=== PATIENT | female | born 1950 | race Caucasian/White ===

== ENCOUNTER 2019-01-14 23:38 | Inpatient (IN) ==
[2019-01-14] MEDS ORDERED: HYDROmorphone HCL 1 MG/ML DISP.SYRIN IV ONE (23:57)
[2019-01-15] MEDS ORDERED: fentaNYL CITRATE/PF 50 MCG/ML AMPUL IV ONE (00:03)
--- NOTE | 2019-01-15 00:18 | ERNOTE ---
Lower Extremity HPI - Narrative Date of Service: 01/15/19 - General Lower Extremities Pain: leg: left - Pain deformity swelling Time Seen by Provider: 01/14/19 23:53 Source: patient - Immun/Allergies/Home Medications Immunizations: IMMUNIZATION HX Immunizations Up to Date No History of Influenza Vaccine No Hx Pneumococcal Vaccination No Allergies/Adverse Reactions: Allergies Allergy/AdvReac Type Severity Reaction Status Date / Time No Known Allergies Allergy Unverified 09/30/15 15:40 Home Medications: HOME MEDICATIONS Duloxetine HCl [Cymbalta] 60 mg PO DAILY 09/30/15 [Last Taken Unknown] LORazepam [Ativan] 1 mg PO QID PRN 09/30/15 [Last Taken Unknown] Levothyroxine Sodium [Tirosint] 75 mcg PO DAILY 09/30/15 [Last Taken Unknown] Lisinopril [Zestril] 20 mg PO DAILY 09/30/15 [Last Taken Unknown] Propranolol HCl [Inderal] 20 mg PO BID 09/30/15 [Last Taken Unknown] Sulfamethoxazole/Trimethoprim [Bactrim Ds] 1 tab PO BID #28 tab 09/30/15 [Last Taken Unknown] metFORMIN HCL [Glucophage] 500 mg PO BIDWM 09/30/15 [Last Taken Unknown] - History of Present Illness Narrative: This is a 68-year-old female comes to the emergency department complaining of left leg pain. Apparently she takes Seroquel to go to sleep at night. She took her medicine this evening but did not go right to bed. She was getting up and trying to go into another room when she fell with the left leg falling underneath her body. She experienced a crack and noticed severe deformity with immediate intense overwhelming pain. EMS was activated and arrived. Obviously significant deformity. Brought to the ER. Given some pain medicine in route with no benefit. Patient says she did not hit her head and did not lose consciousness. She can went down on her bottom with her the leg bent underneath her. No history of hip and leg knee or ankle fractures or injuries in the past. No history of osteoporosis. She is complaining of severe pain. A little bit of tingling but not true numbness. This is all in the left leg from the knee distally. No other complaints. Review of Systems - Review of Systems Constitutional: Present: no symptoms reported EYE: Present: no symptoms reported ENT: Present: no symptoms reported Respiratory: Present: no symptoms reported Cardiology: Present: no symptoms reported Gastrointestinal/Abdominal: Present: no symptoms reported Genitourinary: Present: no symptoms reported Musculoskeletal: Present: See HPI Skin: Present: no symptoms reported Neurological: Present: other - Tingling Endocrine: Present: no symptoms reported Hematologic/Lymphatic: Present: no symptoms reported Psych: Present: no symptoms reported All Other Systems: All systems neg except as marked Medical History (Updated 01/15/19 @ 00:38 by Dimitri Mcpherson MD) Diabetes Hypothyroid Pulmonary hypertension Surgical History: Surgical History (Updated 01/14/19 @ 23:50 by Janice Lara RN) H/O: hysterectomy (Acute) History of appendectomy Social History: (Last Updated 01/14/19 @ 23:46 by Janice Lara, RN) Tobacco: Smoking Status: Never smoker Alcohol: Alcohol type: wine alcohol intake frequency: holiday/special occasion Substance Use: substance use type: does not use Physical Exam - Physical Exam General Appearance: Present: wd/wn, alert, other - Moderate pain distress Head Exam: Present: normal inspection, no evidence of injury Eye Exam: Normal inspection: bilateral, PERRL: bilateral, EOMI: bilateral, Other: bilateral - Minimal nystagmus laterally bilateral Ears, Nose, Throat: Present: normal ENT inspection, normal pharynx Neck: Present: normal inspection, nontender Respiratory: Present: no respiratory distress, normal breath sounds, chest nontender, lungs clear Cardiovascular/Chest: Present: no murmur, other - Heart rate is slow. I do not hear any murmurs Gastrointestinal/Abdominal: Present: nontender, nondistended, soft Back Exam: Present: normal inspection, no vertebral tenderness Extremity Exam: Present: other - Patient has obvious deformity in the mid left t ib-fib area. The distal segment is rotated 90 degrees medially. Capillary refill is intact however I cannot appreciate a dorsalis pedis pulse. Able to wiggle her toes. Extreme hypersensitivity of the skin. Even the most gentle touch causes sharp electric neuropathic kind of pain Neurological Exam: Present: alert, oriented, normal mood/affect, no motor/sensory deficits Skin Exam: Present: normal color, warm/dry, other - Capillary refill is good. There is an area of the mid shaft of the tibia anterior on the jefferson which was ecchymotic. I do not think this was poor perfusion I think it is bruising Lymphatic Exam: Present: no adenopathy Progress - Results and Orders Patient's Lab Results:: I have reviewed the patient's lab results. - Vital Signs Patient's Vital Signs:: I have reviewed the patient's vital signs. Vital Signs: Vital Signs 01/14/19 23:39 Temperature 36.1 C Pulse Rate 57 L Respiratory Rate 16 Blood Pressure 111/54 O2 Sat by Pulse Oximetry 100 - EKG EKG #1 EKG read: Interp. by me EKG Comments: EKG demonstrates sinus rhythm ventricular rate of 61. Normal axis. Normal intervals. No ST elevation. Biphasic T wave in V1 V2 and V3. Nonspecific changes. Flattening inferiorly. - X-Ray X-Ray #1 X-Ray: leg Interpretation: Interp. by me X-ray Comments: Mid to distal tibial fracture with a distal fibular fracture. More T's and knee joints are intact.? Comminution of the second proximal fibular fracture. X-Ray #2 X-Ray: chest Interpretation: Interp. by me X-ray Comments: No acute cardiopulmonary disease is identified - Progress/Reassessment Chief Complaint: Lower Extremity Pain/ Injury Plan - Plan Plan: Patient had obvious deformity of the left leg. Almost certainly fractured. The area of rotation is from the mid shaft distally not at the ankle itself. She has reasonable cap refill but I could not palpate a pulse. Decision was made to provide axial traction. The patient was medicated with 1 mg of Dilaudid and 100 mcg of fentanyl which this physician pushed himself. I then applied gentle traction to straighten out the leg. I felt 2 distinct pops as the bones allowed it to straighten back out. Has now normal anatomic alignment. Splint was applied. Getting x-rays. Pulse is intact now. Able to wiggle her toes. Not as much hypersensitivity. I spoke with Gregorio from orthopedics who is reviewed the films. They are going to plan on doing an operation tomorrow, a tibial nail. We will bring the patient into the hospitalist overnight. They have reviewed the films and do not have any concerns about any of the other findings. Plan for the operating room tomorrow. Departure Clinical Impression: Tibia/fibula fracture Qualifiers: Encounter type: initial encounter Fracture type: closed Laterality: left Qualified Code(s): S82.202A - Unspecified fracture of shaft of left tibia, initial encounter for closed fracture - Departure Disposition: Still a patient Condition: Stable
[2019-01-15] MEDS: ONDANSETRON HCL/PF 2 MG/ML VIAL IV PRN ×2 (01:05→05:16)
[2019-01-15] MEDS: HYDROmorphone HCL 1 MG/ML DISP.SYRIN IV PRN ×3 (01:06→05:16)
[2019-01-15 01:11] LABS: Hematocrit 34.9 % (37.0-47.0); Hemoglobin 11.2 gm/dL (12.5-16.0); Mean Cell Volume 89.3 fl (78-100); Mean Corpuscular Hemoglobin 28.6 pg (27-31); Mean Corpuscular Hgb Conc 32.1 g/dl (32-36); Mean Platelet Volume 10.3 fl (8-12.5); Neutrophil # 8.8 K/mm3 (1.3-6.0); Neutrophil % 81.3 % (42-75.0); Platelet Count 211 K/mm3 (150-450); Red Blood Count 3.91 M/mm3 (4.2-5.4); Red Cell Distribution Width 14.9 % (11.5-14.0); White Blood Count 10.8 K/mm3 (4.0-10.5)
[2019-01-15] MEDS: NORMAL SALINE 1,000 ML IV PRN ×2 (01:34→14:50)
[2019-01-15 01:35] LABS: Albumin * 3.8 gm/dl (3.4-5.0); Anion Gap 16.4 mmol/L (6.8-13.8); BUN/Creatinine Ratio 13.1 (9.0-21.6); Bilirubin, Total 0.2 mg/dL (0.0-1.1); Ca. Corrected For Albumin 8.9 mg/dL (8.4-10.2); Calcium * 9.1 mg/dL (7.9-10.9); Carbon Dioxide 20.1 mmol/L (24-32.6); Potassium 3.5 mmol/L (3.4-4.6); Total Protein 6.9 gm/dL (6.2-8.2)
[2019-01-15] MEDS ORDERED: CYCLOBENZAPRINE HCL 10 MG TABLET PO PRN (03:20)
[2019-01-15] MEDS ORDERED: NALOXONE HCL 0.4 MG/ML VIAL IV ONE (07:38)
[2019-01-15] MEDS ORDERED: HYDROmorphone HCL 1 MG/ML DISP.SYRIN IV PRN (08:15)
--- NOTE | 2019-01-15 09:14 | CONS ---
[facility] - General Date of Service: 01/15/19 Narrative: Patient is a 68-year-old female presented to the ER status post a fall with a left lower leg deformity. A reduction was performed followed by x-rays revealing a tibia and fibula fracture. Fracture was splinted and patient was admitted for further treatment. Patient notes that she had immediate pain after fall felt a crack and had significant deformity so she called EMS. Patient notes she has significant increased pain with movement, better with rest, she has had several episodes of muscle spasms that are painful. Patient reports no other significant acute findings. Source: patient - History of Present Illness Allergies/Adverse Reactions: Allergies No Known Allergies Allergy (Unverified 09/30/15 15:40) Home Medications: Home Medications Medication Instructions Recorded Last Taken Duloxetine HCl [Cymbalta] 30 mg PO DAILY 09/30/15 Unknown LORazepam [Ativan] 1 mg PO QID PRN 09/30/15 Unknown Levothyroxine Sodium [Tirosint] 50 mcg PO DAILY 09/30/15 Unknown Lisinopril [Zestril] 10 mg PO DAILY 09/30/15 Unknown metFORMIN HCL [Glucophage] 500 mg PO DAILY 09/30/15 Unknown Albuterol Sulfate [Albuterol 2 inh INHALATION Q4H PRN 01/15/19 Unknown Sulfate Hfa] Cholecalciferol (Vitamin D3) 5,000 unit PO DAILY 01/15/19 Unknown [Vitamin D3] Cyanocobalamin (Vitamin B-12) 100 mcg PO DAILY 01/15/19 Unknown [Vitamin B12] Diltiazem HCl 30 mg PO TID 01/15/19 Unknown Gabapentin 300 mg PO TID 01/15/19 Unknown Omeprazole [Prilosec] 20 mg PO DAILY 01/15/19 Unknown Potassium Chloride 10 meq PO DAILY 01/15/19 Unknown QUEtiapine FUMARATE [Seroquel] 75 mg PO HS 01/15/19 Unknown Torsemide [Demadex] 20 mg PO DAILY 01/15/19 Unknown traZODone HCL [Desyrel] 50 mg PO HS 01/15/19 Unknown Procedures Amputation and disarticulation of finger (10/30/08) Attachment of pedicle or flap graft to hand (10/30/08) Esophagogastroduodenoscopy [EGD] with closed biopsy (09/30/01) Medications - Medications Current Medications: Current Medications Cyclobenzaprine HCl (Flexeril) 5 mg PO Q8H PRN PRN Reason: Muscle Spasm Stop: 02/14/19 03:21 Last Admin: 01/15/19 03:38 Dose: 5 mg Documented by: Sodium Chloride (Sodium Chloride 0.9%) 1,000 mls @ 125 mls/hr IV .Q8H PRN PRN Reason: HYDRATION Stop: 02/14/19 00:42 Last Admin: 01/15/19 01:34 Dose: 125 mls/hr Documented by: Ondansetron HCl (Zofran) 4 mg IV Q4H PRN PRN Reason: Nausea Stop: 02/14/19 00:46 Last Admin: 01/15/19 05:16 Dose: 4 mg Documented by: Physical Examination - Exam Vital Signs: Vital Signs - Last Taken Temp 36.1 C 01/15/19 06:41 Pulse 77 01/15/19 06:41 Resp 18 01/15/19 06:41 BP 133/55 01/15/19 06:41 Pulse Ox 94 01/15/19 06:41 O2 Oxygen Delivery Method Nasal Cannula Constitutional: Present: Alert, Cooperative, Mild distress Extremity: Present: other - LLE--> mild internal rotation of the lower leg, distal capillary refill brisk, 4/5 toe flexion/extension, sensation intact light touch, lower leg splint in place, diffuse tenderness of left lower leg Eye contact: Present: cooperative Thoughts: Present: normal thought pattern - Results and Findings: Lab/Microbiology results last 24 hrs: Abnormal/Pending Laboratory Last 24 HRS 01/15/19 01/15/19 01:06 01:06 WBC 10.8 H RBC 3.91 L Hgb 11.2 L Hct 34.9 L RDW 14.9 H Immature Gran # (Auto) 0.04 H Neutrophils % 81.3 H Lymphocytes % 11.2 L Neutrophils # 8.8 H Lymphocytes # 1.21 L Carbon Dioxide 20.1 L Anion Gap 16.4 H Creatinine 1.53 H Est GFR (Non-Af Amer) 36 L D Random Glucose 149 H ALT 12 L - Assessments/Findings (1) Tibia/fibula fracture Problem: Acute Qualifiers: Encounter type: initial encounter Fracture type: closed Laterality: left Qualified Code(s): S82.202A - Unspecified fracture of shaft of left tibia, in itial encounter for closed fracture; S82.402A - Unspecified fracture of shaft of left fibula, initial encounter for closed fracture Plan - Plan Plan: -68 y/o female presented to the ER status post fall with a left tibia/fibula fracture -Orthopedics was consulted, after reviewing x-rays and discussing with Dr. Cruz discussed conservative versus surgical intervention with patient. Discussed risk first benefits including but not limited to malunion versus nonunion fracture healing, continued pain, deformity, DVT risk, cardiac and stroke risk, inherent surgical risk, bleeding, infection. Patient expressed understanding these risks and wishes to proceed with surgical intervention. Patient will undergo open versus closed reduction of left tibia and fibula fractures with a tibial nail and fibula plate. Patient has yet to be seen by the medical provider once she is seen and surgical risk has been assessed we can proceed with surgical intervention on 01/15/2019 as planned. Patient will continue her stay in the hospital postoperatively for monitoring, pain control, physical therapy, postoperative complications. -N.p.o. -Nonweightbearing left lower extremity -Order for pain medication of morphine 1 mg every 2 hours to be used, will DC Dilaudid as patient required Narcan early this morning. Discussed with nursing to watch closely after these doses have been administered to monitor for deterioration of patient's vitals.
[2019-01-15] MEDS ORDERED: MORPHINE SULFATE 2 MG/ML DISP.SYRIN IV PRN ×2 (09:15→13:44)
[2019-01-15] MEDS ORDERED: ceFAZolin SODIUM 1 GM in DEXTROSE 5 % IN WATER 50 ML IV PRN ×2 (09:29)
[2019-01-15] MEDS ORDERED: ACETAMINOPHEN 325 MG TABLET PO PRN (10:36)
[2019-01-15] MEDS ORDERED: LORazepam 1 MG TABLET PO PRN (10:37)
--- NOTE | 2019-01-15 10:55 | HP ---
Chief Complaint - Chief Complaint Date of Service: 01/15/19 Time of Service: 10:43 Chief Complaint: I fell and broke my left leg and now I have pain History of Present Illness: 68-year-old female with past medical history of hypertension, type 2 diabetes, pulmonary hypertension, oxygen dependent, and hypothyroidism was evaluated in our ER due to significant left lower extremity pain and deformity secondary to a fall that occurred in her home last night. Patient reports that she took her routine Seroquel that she usually takes at bedtime, however she did not go to bed and stayed up watching television in her living room and became drowsy. While attempting to walk over to another room the patient fell falling onto her left leg which snapped and and apparently broke due to obvious deformity and excruciating pain that occurred on impact. EMS was called and patient was taken to the ER with obvious deformity and apparent fracture of her left lower extremity was noted, she was then administered pain medication and manual reduction of the bones in her leg was performed. Ortho was consulted and after reviewing the films and evaluating the patient they agreed t take her to the OR for reduction and fixation to address the fracture. Medical History (Updated 01/15/19 @ 00:38 by Dimitri Mcpherson MD) Diabetes Hypothyroid Pulmonary hypertension Surgical History: Surgical History (Updated 01/14/19 @ 23:50 by Janice Lara RN) H/O: hysterectomy (Acute) History of appendectomy Family History: Family History (Last Updated 01/15/19 @ 01:51 by Ariadne Mc RN) Brother Liver cancer Sister Lung cancer Myocardial infarction Social History: (Last Reviewed 01/15/19 @ 01:51 by Ariadne Mc RN) Tobacco: Smoking Status: Never smoker Alcohol: Alcohol type: wine alcohol intake frequency: holiday/special occasion Substance Use: substance use type: does not use Peds Patient Hx - Developmental: No Pertinent Hx Peds Patient Hx - Medical: No Pertinent Hx Peds Patient Hx - Cardiac/Respiratory: No Pertinent Hx Peds Patient Hx - Surgical: No Surgical History Patient History - Cancer: No Hx of Cancer Review Of Systems (GEN) - Review of Systems Generalized/Overall Review: Present: No Symptoms Reported EENTM: Present: No Symptoms Reported Respiratory: Present: No Symptoms Reported Cardiac: Present: No Symptoms Reported Abdominal: Present: No Symptoms Reported Genitourinary: Present: No Symptoms Reported Musculoskeletal: Present: Joint Pain, Other - Left lower extremity pain and deformity Neurological: Present: No Symptoms Reported Skin: Present: No Symptoms Reported Endocrine: Present: No Symptoms Reported Immunizations: IMMUNIZATION HX Immunizations Up to Date No History of Influenza Vaccine No Hx Pneumococcal Vaccination No Allergies/Adverse Reactions: Allergies Allergy/AdvReac Type Severity Reaction Status Date / Time No Known Allergies Allergy Unverified 09/30/15 15:40 Home Medications: HOME MEDICATIONS Duloxetine HCl [Cymbalta] 30 mg PO DAILY 09/30/15 [Last Taken Unknown] LORazepam [Ativan] 1 mg PO QID PRN 09/30/15 [Last Taken Unknown] Levothyroxine Sodium [Tirosint] 50 mcg PO DAILY 09/30/15 [Last Taken Unknown] Lisinopril [Zestril] 10 mg PO DAILY 09/30/15 [Last Taken Unknown] metFORMIN HCL [Glucophage] 500 mg PO DAILY 09/30/15 [Last Taken Unknown] Albuterol Sulfate [Albuterol Sulfate Hfa] 2 inh INHALATION Q4H PRN 01/15/19 [Last Taken Unknown] Cholecalciferol (Vitamin D3) [Vitamin D3] 5,000 unit PO DAILY 01/15/19 [Last Taken Unknown] Cyanocobalamin (Vitamin B-12) [Vitamin B12] 100 mcg PO DAILY 01/15/19 [Last Taken Unknown] Diltiazem HCl 30 mg PO TID 01/15/19 [Last Taken Unknown] Gabapentin 300 mg PO TID 01/15/19 [Last Taken Unknown] Omeprazole [Prilosec] 20 mg PO DAILY 01/15/19 [Last Taken Unknown] Potassium Chloride 10 meq PO DAILY 01/15/19 [Last Taken Unknown] QUEtiapine FUMARATE [Seroquel] 75 mg PO HS 01/15/19 [Last Taken Unknown] Torsemide [Demadex] 20 mg PO DAILY 01/15/19 [Last Taken Unknown] traZODone HCL [Desyrel] 50 mg PO HS 01/15/19 [Last Taken Unknown] Exam - Exam Vital Signs: Vital Signs - Last Taken Temp 36.1 C 01/15/19 06:41 Pulse 77 01/15/19 06:41 Resp 18 01/15/19 06:41 BP 133/55 01/15/19 06:41 Pulse Ox 94 01/15/19 06:41 Constitutional: Present: Alert, Oriented x3, Cooperative, Well developed, Well nourished, No distress, Elderly ENT Exam: Present: normal ENT inspection, hearing grossly normal, pharynx normal, TMs normal Eye Exam: bilateral eye: normal inspection, PERRL, EOMI Neck: Present: non-tender, full range of motion, supple, normal inspection, trachea midline Back Exam: Present: normal inspection, no CVA tenderness, no vertebral tenderness Breasts: Present: Exam deferred Respiratory: Present: chest non-tender, lungs clear, normal breath sounds, no respiratory distress, no accessory muscle use Cardiovascular/Chest: Present: normal peripheral pulses, regular rate, rhythm, no chest tenderness, no edema, no gallop, no JVD, no murmur, no rub Peripheral Pulses: carotid (R): 3+, carotid (L): 3+, femoral (R): 3+, femoral (L): 3+, dorsalis-pedis (R): 3+, dorsalis-pedis (L): 3+ Abdomen: Present: Normal bowel sounds, soft, nontender, nondistended, no rebound tenderness, no hepatospenomegaly, no masses /Rectal: Present: Exam deferred Extremity: Present: no pedal edema, normal capillary refill, pelvis stable, calf tenderness, lower extremity edema, leg pain, other - Left lower extremity shortening with internal rotation Skin Exam: Present: normal color, warm/dry, no cyanosis Lymphatic: Present: no adenopathy Neurologic: Present: bottle label inspector II-XII nml as tested, normal cerebellar test, no motor/sensory deficits, alert, normal mood/affect, oriented x 3 Appearance: Present: appropriate appearance, appropriate insight, neat, no memory impairment Eye contact: Present: cooperative, good eye contact, normal speech Thoughts: Present: normal thought pattern, no apparent hallucination Diagnostic Studies: Abnormal Lab Results 01/15/19 01/15/19 Range/Units 01:06 01:06 WBC 10.8 H (4.0-10.5) K/mm3 RBC 3.91 L (4.2-5.4) M/mm3 Hgb 11.2 L (12.5-16.0) gm/dL Hct 34.9 L (37.0-47.0) % RDW 14.9 H (11.5-14.0) % Immature Gran # (Auto) 0.04 H (0.000-0.0310) K/mm3 Neutrophils % 81.3 H (42-75.0) % Lymphocytes % 11.2 L (20-51) % Neutrophils # 8.8 H (1.3-6.0) K/mm3 Lymphocytes # 1.21 L (1.5-3.5) k/mm3 Carbon Dioxide 20.1 L (24-32.6) mmol/L Anion Gap 16.4 H (6.8-13.8) mmol/L Creatinine 1.53 H (0.4-1.4) mg/dL Est GFR (Non-Af Amer) 36 L D (60-130) mL/min Random Glucose 149 H (70-110) mg/dL ALT 12 L (19-67) U/L Laboratory Results WBC 10.8 K/mm3 (4.0-10.5) H 01/15/19 01:06 RBC 3.91 M/mm3 (4.2-5.4) L 01/15/19 01:06 Hgb 11.2 gm/dL (12.5-16.0) L 01/15/19 01:06 Hct 34.9 % (37.0-47.0) L 01/15/19 01:06 MCV 89.3 fl (78-100) 01/15/19 01:06 MCH 28.6 pg (27-31) 01/15/19 01:06 MCHC 32.1 g/dl (32-36) 01/15/19 01:06 RDW 14.9 % (11.5-14.0) H 01/15/19 01:06 Plt Count 211 K/mm3 (150-450) 01/15/19 01:06 MPV 10.3 fl (8-12.5) 01/15/19 01:06 Immature Gran % (Auto) 0.40 % (0.001-0.429) 01/15/19 01:06 Immature Gran # (Auto) 0.04 K/mm3 (0.000-0.0310) H 01/15/19 01:06 81.3 % (42-75.0) H 01/15/19 01:06 11.2 % (20-51) L 01/15/19 01:06 6.6 % (0.0-9) 01/15/19 01:06 0.3 % (0.0-3.0) 01/15/19 01:06 0.2 % (0.0-1.0) 01/15/19 01:06 Nucleated RBC % 0.0 k/mm3 (0-1) 01/15/19 01:06 8.8 K/mm3 (1.3-6.0) H 01/15/19 01:06 1.21 k/mm3 (1.5-3.5) L 01/15/19 01:06 0.7 k/mm3 (0.0-1.0) 01/15/19 01:06 0.0 k/mm3 (0.0-0.7) 01/15/19 01:06 Absolute Basophils 0.0 k/mm3 (0.0-0.1) 01/15/19 01:06 Sodium 139 mmol/L (132-142) 01/15/19 01:06 140 mmol/L (130-142) 01/15/19 01:06 Potassium 3.5 mmol/L (3.4-4.6) 01/15/19 01:06 Chloride 106 mmol/L (97-106) 01/15/19 01:06 Carbon Dioxide 20.1 mmol/L (24-32.6) L 01/15/19 01:06 16.4 mmol/L (6.8-13.8) H 01/15/19 01:06 BUN 20 mg/dL (3-23) 01/15/19 01:06 1.53 mg/dL (0.4-1.4) H 01/15/19 01:06 Est GFR (Non-Af Amer) 36 mL/min (60-130) L D 01/15/19 01:06 13.1 (9.0-21.6) 01/15/19 01:06 149 mg/dL (70-110) H 01/15/19 01:06 Calcium 9.1 mg/dL (7.9-10.9) 01/15/19 01:06 Calcium Adj for Albumin 8.9 mg/dL (8.4-10.2) 01/15/19 01:06 0.2 mg/dL (0.0-1.1) 01/15/19 01:06 AST 30 U/L (0-48) 01/15/19 01:06 ALT 12 U/L (19-67) L 01/15/19 01:06 96 U/L (50-170) 01/15/19 01:06 6.9 gm/dL (6.2-8.2) 01/15/19 01:06 3.8 gm/dl (3.4-5.0) 01/15/19 01:06 Assessment/Plan - Narrative Narrative: Patient was evaluated and medical chart was reviewed and decision to admit to [facility] under inpatient basis was made. Will be managing the diagnosis of left tibial and fibular fracture. Patient is scheduled to be taken to the OR this morning for an open versus closed reduction and fixation by the orthopedic surgeon. At the moment the patient presents stable vitals and reports adequate pain control. Her pain was initially managed with Dilaudid however patient started presenting decreased respiratory rate therefore the orthopedic team has changed her pain medications. We will continue to monitor her closely and follow-up with her after her surgery. Labs on admission demonstrate a hemoglobin of 11 and a GFR of 36, the last recorded GFR was 59 but that was 3 years ago, it is difficult to determine her most recent baseline GFR. IV hydration has been ordered for optimal renal function however it has been difficult to place an IV line, anesthesia will attempt to insert a IV catheter in order to hydrate her before the procedure. Clinically the patient appears stable enough to undergo her surgical procedure, therefore she is cleared for surgery. - Assessment/Plan (1) Fracture of tibia with fibula, left, closed Problem: Acute Qualifiers: Encounter type: initial encounter Qualified Code(s): S82.202A - Unspecified fracture of shaft of left tibia, initial encounter for closed fracture; S82.402A - Unspecified fracture of shaft of left fibula, initial encounter for closed fra cture (2) HTN (hypertension) Problem: Chronic Qualifiers: Hypertension type: essential hypertension Qualified Code(s): I10 - Essential (primary) hypertension (3) Diabetes 1.5, managed as type 2 Problem: Chronic (4) Pulmonary hypertension Problem: Chronic
--- NOTE | 2019-01-15 11:06 | ANES ---
Anesthesia Pre Procedure Eval Vitals/Labs: Last Vital Signs Temp 36.1 C 01/15/19 06:41 Pulse 77 01/15/19 06:41 Resp 18 01/15/19 06:41 BP 133/55 01/15/19 06:41 Pulse Ox 94 01/15/19 06:41 HOME MEDICATIONS Duloxetine HCl [Cymbalta] 30 mg PO DAILY 09/30/15 [Last Taken Unknown] LORazepam [Ativan] 1 mg PO QID PRN 09/30/15 [Last Taken Unknown] Levothyroxine Sodium [Tirosint] 50 mcg PO DAILY 09/30/15 [Last Taken Unknown] Lisinopril [Zestril] 10 mg PO DAILY 09/30/15 [Last Taken Unknown] metFORMIN HCL [Glucophage] 500 mg PO DAILY 09/30/15 [Last Taken Unknown] Albuterol Sulfate [Albuterol Sulfate Hfa] 2 inh INHALATION Q4H PRN 01/15/19 [Last Taken Unknown] Cholecalciferol (Vitamin D3) [Vitamin D3] 5,000 unit PO DAILY 01/15/19 [Last Taken Unknown] Cyanocobalamin (Vitamin B-12) [Vitamin B12] 100 mcg PO DAILY 01/15/19 [Last Taken Unknown] Diltiazem HCl 30 mg PO TID 01/15/19 [Last Taken Unknown] Gabapentin 300 mg PO TID 01/15/19 [Last Taken Unknown] Omeprazole [Prilosec] 20 mg PO DAILY 01/15/19 [Last Taken Unknown] Potassium Chloride 10 meq PO DAILY 01/15/19 [Last Taken Unknown] QUEtiapine FUMARATE [Seroquel] 75 mg PO HS 01/15/19 [Last Taken Unknown] Torsemide [Demadex] 20 mg PO DAILY 01/15/19 [Last Taken Unknown] traZODone HCL [Desyrel] 50 mg PO HS 01/15/19 [Last Taken Unknown] Allergies/Adverse Reactions: Allergies Allergy/AdvReac Type Severity Reaction Status Date / Time No Known Allergies Allergy Unverified 09/30/15 15:40 - Planned Procedure Planned Procedure: LT TIB/FIB FRACTURE Medication List Reviewed:: Yes Allergies Verified: Yes Medical History (Updated 01/15/19 @ 10:59 by Edwina Nolan MD) Diabetes Hypothyroid Pulmonary hypertension Surgical History (Updated 01/14/19 @ 23:50 by Janice Lara RN) H/O: hysterectomy (Acute) History of appendectomy Family History (Last Reviewed 01/15/19 @ 11:05 by Sid Astorga CRNA) Brother Liver cancer Sister Lung cancer Myocardial infarction - Family Anesthesia History Family History:: no untoward family reactions to anesthesia - Airway/Neck/Teeth Within Normal Limits:: Yes Denture Type: Full upper, Full lower Neck Exam: full range of motion Mallampatti Score: 1 Thyromental (T-M) distance: > 6 cm Mandibulo Hyoid distance: > 3 cm - Respiratory Respiratory History: asthma, home O2 use Respiratory Physical: lungs clear, decreased breath sounds Smoking Status: Former smoker Sleep Apnea currently treated: No Sleep Apnea by current assessment: No - Cardiovascular Cardiac History: hypertension Tolerate Activity: Fair Heart Sounds: S1 & S2, Regular, Murmur - Anesthesia Assessment and Plan ASA Class: PS, III, E Anesthesia Type Plan: Spinal Planned difficult intubation/equipment available: No
[2019-01-15] MEDS: RINGER'S SOLUTION,LACTATED 1,000 ML IV PRN ×2 (11:30→12:30)
[2019-01-15] MEDS ORDERED: BUPIVACAINE HCL 50 ML VIAL IJ ONE (13:30)
[2019-01-15] MEDS ORDERED: MAGNESIUM HYDROXIDE 30 ML UDC PO PRN (13:44)
[2019-01-15] MEDS ORDERED: MAG HYDROX/ALUMINUM HYD/SIMETH 30 ML UDC PO PRN (13:44)
--- NOTE | 2019-01-15 13:57 | OR ---
Operative Report - Dictated Report Narrative: Date: 01/15/2019 Surgeon: Steven Cruz M.D. Ruling Machine Operator: Gregorio Walter PA-C provided a set of essential, skilled, educated hands that assisted in positioning, transfer, retraction, manipulation, irrigation, closure of wounds, and placement of dressings all of which could not be provided by the available surgical crew. Anesthesia: Spinal plus local Preoperative diagnosis: Left tibial shaft fracture, right distal fibula fracture Postoperative diagnosis: Left tibial shaft fracture, right distal fibula fracture Procedure: 1. Intramedullary nailing of left tibial shaft fracture 2. Intra-operative interpretation of radiographs Estimated blood loss: 100 mL Tourniquet time: None Retained implants: [employer] 11.5 x 300 mm tibial nail and associated interlocking screws Specimens: None Complications: None Indications: Marilu is a 68-year-old female who tripped and fell at home resulting in an injury to the left tibia/fibula. They were seen in the emergency department with images obtained revealing the above injury. She was admitted to the hospital for planned surgical fixation. The risks, benefits, and treatment options were discussed with the patient and the plan for intramedullary nailing of the tibia was discussed. Risks were reviewed including , blood clots, nerve/tendon/blood vessel injury, malunion, nonunion, failure of implants, prominent implants, arthrosis, persistent pain, need for additional procedures, and risks of anesthesia. Procedure: After a timeout, a spinal anesthetic was administered. Beanbag was utilized in order bump the operative leg and a well-padded tourniquet was applied to the ope rative thigh. The splint was removed and the leg was pre-scrubbed with chlorhexidine then prepped and draped in a standard sterile fashion. Extremity was exsanguinated and tourniquet was inflated. Initial attention was turned to seeing if we could obtain a closed reduction of the tibia. This could be relatively easily achieved with longitudinal traction, external rotation, and manual manipulation at the fracture site. Inspection of the fibula fracture revealed that it was a above the level of the syndesmosis with a stable ankle mortise. We did not feel that any fixation of the fibula was needed. A trans- patellar approach for our tibial nail was chosen. An approximately 4 cm incision was made directly over the patellar tendon. This was carried down through the tendon itself longitudinally. A guidepin was placed through the incision at the anterior aspect of the tibial plateau just off the articular surface on the lateral view and at the medial aspect of the lateral tibial alfonzo ence on the AP view centered down the tibial shaft. This was advanced down the intramedullary canal. The entry reamer was then used to ream our entry hole over the guidepin. A long ball-tipped guidewire was then passed down the intramedullary canal, across the fracture site, into a center-center position at the distal physeal scar of the distal tibia. This was confirmed with the C-arm. We checked the alignment of our fracture site on AP and lateral views and noted that it was well aligned. We then sequentially reamed the tibial canal starting with a 9 mm end-cutting reamer and reaming all the way up to 13 mm with good cortical chatter. Our nail length was measured and we chose an 11.5 mm x 30 cm nail. This was advanced down the intramedullary canal over the guidewire and seated completely distally. The C-arm was used to visualize the fracture site as we advanced our nail to ensure good alignment. There was no displacement of our fracture and with the nail fully seated, the fracture had excellent alignment on AP and lateral views. Two proximal interlocking screws were placed through the cantilever interlocking guide. We again double checked the rotation of her foot relative to the knee, which was equal to her opposite side. Two distal interlocking screws were placed from medial to lateral using the perfect circles technique. Final images were taken at the knee, the fracture site, and the ankle. We confirmed appropriate placement and length of all of our implants as well as our fracture reduction. At this point we felt we had adequately stabilized her fracture. The wounds were all copiously irrigated with normal saline. The patellar tendon incision was closed with a running 0 Vicryl and the skin with a combination of 3-0 Vicryl in an interrupted deep dermal fashion followed by 4-0 nylon. All percutaneous screw incisions were closed with 4-0 nylon. Xeroform, 4 x 4's, soft roll, and a well-padded AO splint was applied. Patient was then awoken and transferred to postanesthesia care in stable condition. All sponge, sharp, and instrument counts were correct prior to closing the wounds.
--- NOTE | 2019-01-15 14:18 | ANES ---
Post Anesthesia Discharge - Transfer of Care Transfer of Care handoff given to nurse: Yes - Discharge from PACU Discharge from PACU when meets criteria: Yes
--- NOTE | 2019-01-15 14:18 | ANES ---
Post Anesthesia Assessment - Vital Signs Vitals: Last Vital Signs Temp 36.7 C 01/15/19 14:05 Pulse 66 01/15/19 14:15 Resp 12 01/15/19 14:15 BP 108/47 01/15/19 14:15 Pulse Ox 94 01/15/19 14:15 Airway Patency: Normal - Mental Status Level Of Consciousness: Awake - Pain Level Pain Score: 0 - N/V Assessment Nausea/Vomiting Presence: None Dehydration:: No
[2019-01-15] MEDS: FAMOTIDINE 20 MG in DEXTROSE 5 % IN WATER 100 ML IV SCH ×4 (14:43→22:25)
[2019-01-15] MEDS: DOCUSATE SODIUM 100 MG CAPSULE PO SCH ×2 (14:43→20:14)
[2019-01-15] MEDS: INSULIN REGULAR, HUMAN 100 UNITS/ML VIAL SC SCH ×3 (14:44→20:15)
[2019-01-15] MEDS: HYDROcodone/ACETAMINOPHEN 1 EACH TABLET PO PRN ×2 (16:06→20:09)
[2019-01-15] MEDS: DULoxetine HCL 30 MG CAPSULE.SA PO SCH (16:08)
[2019-01-15] MEDS: DILTIAZEM HCL 30 MG TABLET PO SCH ×2 (16:10→20:19)
[2019-01-15] MEDS: ceFAZolin SODIUM 1 GM in DEXTROSE 5 % IN WATER 100 ML IV SCH ×2 (17:34)
[2019-01-15] MEDS: GABAPENTIN 300 MG CAPSULE PO SCH ×2 (18:59→19:00)
[2019-01-15] MEDS: traZODone HCL 50 MG TABLET PO SCH (20:14)
[2019-01-15] MEDS: QUEtiapine FUMARATE 25 MG TABLET PO SCH (20:17)
[2019-01-15] MEDS: SENNOSIDES/DOCUSATE SODIUM 1 TAB TABLET PO SCH (20:22)
[2019-01-16] MEDS: ceFAZolin SODIUM 1 GM in DEXTROSE 5 % IN WATER 100 ML IV SCH ×4 (01:16→09:15)
[2019-01-16] MEDS: HYDROcodone/ACETAMINOPHEN 1 EACH TABLET PO PRN ×4 (01:18→14:18)
[2019-01-16] MEDS: DILTIAZEM HCL 30 MG TABLET PO SCH ×3 (06:04→21:03)
[2019-01-16 06:51] LABS: Albumin * 2.9 gm/dl (3.4-5.0); Anion Gap 8.6 mmol/L (6.8-13.8); BUN/Creatinine Ratio 8.8 (9.0-21.6); Bilirubin, Total 0.4 mg/dL (0.0-1.1); Ca. Corrected For Albumin 8.5 mg/dL (8.4-10.2); Calcium * 7.9 mg/dL (7.9-10.9); Carbon Dioxide 29.1 mmol/L (24-32.6); Potassium 3.7 mmol/L (3.4-4.6); Total Protein 5.7 gm/dL (6.2-8.2)
[2019-01-16 06:58] LABS: Hematocrit 26.9 % (37.0-47.0); Hemoglobin 8.6 gm/dL (12.5-16.0); Mean Cell Volume 90.6 fl (78-100); Mean Platelet Volume 10.8 fl (8-12.5); Neutrophil # 3.3 K/mm3 (1.3-6.0); Neutrophil % 59.2 % (42-75.0); Platelet Count 152 K/mm3 (150-450); Red Blood Count 2.97 M/mm3 (4.2-5.4); Red Cell Distribution Width 15.1 % (11.5-14.0); White Blood Count 5.6 K/mm3 (4.0-10.5)
[2019-01-16] MEDS: INSULIN REGULAR, HUMAN 100 UNITS/ML VIAL SC SCH ×4 (07:15→21:03)
[2019-01-16] MEDS: LEVOTHYROXINE SODIUM 50 MCG TABLET PO SCH (07:15)
--- NOTE | 2019-01-16 08:52 | PN ---
Subjective - Date and Time Seen Date: 01/16/19 Time: 07:30 Subjective Narrative: Patient reports her pain is well controlled. She notes her pain is worse with movement, better with rest, she feels comfortable in splint. She notes no acute events overnight. She notes she is having no other acute symptoms currently. Objective - Vitals Vitals: Last Vital Signs Temp 37.7 C 01/16/19 07:24 Pulse 76 01/16/19 07:24 Resp 9 L 01/16/19 07:24 BP 112/45 01/16/19 07:24 Pulse Ox 100 01/16/19 07:24 - Abnormal Lab Findings Abnormal Lab Findings: Abnormal Lab Results 01/16/19 01/16/19 Range/Units 06:00 06:20 RBC 2.97 L (4.2-5.4) M/mm3 Hgb 8.6 L (12.5-16.0) gm/dL Hct 26.9 L (37.0-47.0) % RDW 15.1 H (11.5-14.0) % Monocytes % 13.1 H (0.0-9) % Lymphocytes # 1.49 L (1.5-3.5) k/mm3 Chloride 107 H (97-106) mmol/L Est GFR (Non-Af Amer) 45 L D (60-130) mL/min BUN/Creatinine Ratio 8.8 L (9.0-21.6) Random Glucose 115 H (70-110) mg/dL ALT 10 L (19-67) U/L Total Protein 5.7 L (6.2-8.2) gm/dL Albumin 2.9 L (3.4-5.0) gm/dl - Exam Constitutional: Present: Alert, Cooperative, No distress Extremity: Present: other - LLE--> postoperative splint in place, no significant drainage, sensation intact light touch, distal capillary refill brisk, 5/5 toe flexion/extension, diffuse tenderness from knee to ankle Eye contact: Present: cooperative Thoughts: Present: normal thought pattern Cauti Physician Documentation - Urinary Catheter Management Urethral (Sands) Date of Insertion: 01/15/19 Time of Insertion: 11:45 Assessment/Plan Plan Narrative: 68-year-old female postop day 1 status post closed reduction and nailing of left tibia fracture -Nonweightbearing left lower extremity, ambulatory devices needed -PT/OT progress as tolerated -P.o. diet as tolerated -P.o. pain medication PRN -DVT prophylaxis, SCDs in bed, HEAVEN hose knee-high -Chronic medical conditions per medicine team -Hemoglobin 8.6 continue to monitor -Patient will continue with an inpatient stay, plan to monitor progress with a ssistive devices, nonweightbearing status to left lower extremity, plan to progress with PT/OT, monitor pain, return to p.o. diet, once all goals are met, discharge will be planned, consideration to use a halfway facility as patient's ambulation status may be difficult to consider returning home - Problems/Diagnosis (1) Fracture of tibia with fibula, left, closed Problem: Acute Qualifiers: Encounter type: initial encounter Qualified Code(s): S82.202A - Unspecified fracture of shaft of left tibia, initial encounter for closed fracture; S82.402A - Unspecified fracture of shaft of left fibula, initial encounter for closed fracture
[2019-01-16] MEDS ORDERED: NON-FORMULARY 1 DOSE DOSE (Omeprazole 20 MG) PO SCH (09:00)
[2019-01-16] MEDS: CHOLECALCIFEROL 5,000 UNIT TABLET PO SCH (09:15)
[2019-01-16] MEDS: LISINOPRIL 10 MG TABLET PO SCH (09:16)
[2019-01-16] MEDS: POTASSIUM CHLORIDE 10 MEQ TABLET.SA PO SCH (09:16)
[2019-01-16] MEDS: GABAPENTIN 300 MG CAPSULE PO SCH ×3 (09:16→17:30)
[2019-01-16] MEDS: TORSEMIDE 20 MG TABLET PO SCH (09:16)
[2019-01-16] MEDS: metFORMIN HCL 500 MG TABLET PO SCH (09:16)
[2019-01-16] MEDS: DULoxetine HCL 30 MG CAPSULE.SA PO SCH (09:16)
[2019-01-16] MEDS: DOCUSATE SODIUM 100 MG CAPSULE PO SCH ×2 (09:16→21:02)
[2019-01-16] MEDS: Cyanocobalamin (Vitamin B-12) 100 MCG PO SCH (09:16)
[2019-01-16] MEDS: ASPIRIN 325 MG TABLET.DR PO SCH (09:17)
[2019-01-16] MEDS: FAMOTIDINE 20 MG in DEXTROSE 5 % IN WATER 100 ML IV SCH ×2 (11:58)
--- NOTE | 2019-01-16 13:15 | PN ---
Subjective - Date and Time Seen Date: 01/16/19 Time: 13:04 Subjective Narrative: I have left lower extremity pain Objective Objective Narrative: 68-year-old female status post close reduction and fixation of a left tib-fib fracture was evaluated at bedside was found to be afebrile and in no acute distress. Patient reports pain of the left lower extremity related to her fracture, so pain meds were administered. But besides that she is doing well, she maintained stable vitals and is tolerating PT and OT without any issues. Discharge planning is underway by director of casework. In the meantime she was ordered to be nonweightbearing on the involved extremity by the Ortho team. Postop hemoglobin has dropped but remained stable, will continue to follow labs daily. - Review of Systems Generalized/Overall Review: Reports: No Symptoms Reported EENTM: Reports: No Symptoms Reported Respiratory: Reports: No Symptoms Reported Cardiac: Reports: No Symptoms Reported Abdominal: Reports: No Symptoms Reported Genitourinary Symptoms: Reports: No Symptoms Reported Musculoskeletal Complaints: Reports: Joint Pain, Other - Left lower extremity pain Neurological: Reports: No Symptoms Reported Skin: Reports: No Symptoms Reported Endocrine: Reports: No Symptoms Reported - Vitals Vitals: Last Vital Signs Temp 37.1 C 01/16/19 10:06 Pulse 68 01/16/19 11:59 Resp 16 01/16/19 10:06 BP 123/57 01/16/19 11:59 Pulse Ox 98 01/16/19 10:06 - Abnormal Lab Findings Abnormal Lab Findings: Abnormal Lab Results 01/16/19 01/16/19 Range/Units 06:00 06:20 RBC 2.97 L (4.2-5.4) M/mm3 Hgb 8.6 L (12.5-16.0) gm/dL Hct 26.9 L (37.0-47.0) % RDW 15.1 H (11.5-14.0) % Monocytes % 13.1 H (0.0-9) % Lymphocytes # 1.49 L (1.5-3.5) k/mm3 Chloride 107 H (97-106) mmol/L Est GFR (Non-Af Amer) 45 L D (60-130) mL/min BUN/Creatinine Ratio 8.8 L (9.0-21.6) Random Glucose 115 H (70-110) mg/dL ALT 10 L (19-67) U/L Total Protein 5.7 L (6.2-8.2) gm/dL Albumin 2.9 L (3.4-5.0) gm/dl - Exam Constitutional: Present: Alert, Oriented x3, Cooperative, Well developed, Well nourished, No distress ENT Exam: Present: normal ENT inspection, hearing grossly normal, pharynx normal, TMs normal Neck: Present: non-tender, full range of motion, supple, normal inspection, trachea midline Breasts: Present: Exam deferred Respiratory: Present: chest non-tender, lungs clear, normal breath sounds, no respiratory distress, no accessory muscle use, respiratory distress Cardiovascular/Chest: Present: normal peripheral pulses, regular rate, rhythm, no chest tenderness, no edema, no gallop, no JVD, no murmur, no rub Abdomen: Present: Normal bowel sounds, soft, nontender, nondistended, no rebound tenderness, no hepatospenomegaly, no masses /Rectal: Present: Exam deferred Extremity: Present: no pedal edema, no calf tenderness, normal capillary refill, pelvis stable, swelling, other - Left lower extremity in Cam boot and wrapped in dry clean dressings and bandages, there are no signs or symptoms of bleeding or infection. Pulses and sensations are intact. Skin Exam: Present: normal color, warm/dry, no cyanosis Lymphatic: Present: no adenopathy Neurologic: Present: bar steward II-XII nml as tested, normal cerebellar test, no motor/sensory deficits, alert, normal mood/affect, oriented x 3 Appearance: Present: appropriate appearance, appropriate insight, neat, no memory impairment Eye contact: Present: cooperative, good eye contact, normal speech Thoughts: Present: normal thought pattern, no apparent hallucination Cauti Physician Documentation - Urinary Catheter Management Urethral (Sands) Urethral Indwelling: No Date of Insertion: 01/15/19 Time of Insertion: 11:45 Date of Removal: 01/16/19 Time of Removal: 09:30 Assessment/Plan Plan Narrative: Patient continues to recuperate from her surgery without any major issues. Analgesics are being administered to control pain. We will continue with in hospital PT and OT per Ortho's recommendation , patient was informed that she will be nonweightbearing for several weeks until her fracture heals and until she is cleared by the Ortho team to resume weightbearing. In the meantime we will continue to monitor daily labs to watch hemoglobin and electrolytes as well as kidney function and continue to monitor vitals. - Problems/Diagnosis (1) Fracture of tibia with fibula, left, closed Problem: Acute Qualifiers: Encounter type: initial encounter Qualified Code(s): S82.202A - Unspecified fracture of shaft of left tibia, initial encounter for closed fracture; S82.402A - Unspecified fracture of shaft of left fibula, initial encounter for closed fracture (2) HTN (hypertension) Problem: Chronic Qualifiers: Hypertension type: essential hypertension Qualified Code(s): I10 - Essential (primary) hypertension (3) Diabetes 1.5, managed as type 2 Problem: Chronic (4) Pulmonary hypertension Problem: Chronic (5) Postoperative anemia Problem: Acute (6) Postoperative anemia due to acute blood loss Problem: Acute (7) Status post closed reduction with internal fixation Problem: Acute
[2019-01-16] MEDS: traZODone HCL 50 MG TABLET PO SCH (21:03)
[2019-01-16] MEDS: SENNOSIDES/DOCUSATE SODIUM 1 TAB TABLET PO SCH (21:05)
[2019-01-16] MEDS: QUEtiapine FUMARATE 25 MG TABLET PO SCH (21:05)
[2019-01-16] MEDS: FAMOTIDINE 20 MG TABLET PO SCH (21:07)
[2019-01-17] MEDS: HYDROcodone/ACETAMINOPHEN 1 EACH TABLET PO PRN ×2 (03:36→13:43)
[2019-01-17] MEDS: DILTIAZEM HCL 30 MG TABLET PO SCH ×3 (05:42→20:56)
[2019-01-17 05:57] LABS: Hematocrit 25.9 % (37.0-47.0); Hemoglobin 8.4 gm/dL (12.5-16.0); Mean Corpuscular Hemoglobin 28.9 pg (27-31); Mean Corpuscular Hgb Conc 32.4 g/dl (32-36); Mean Platelet Volume 10.6 fl (8-12.5); Platelet Count 157 K/mm3 (150-450); Red Blood Count 2.91 M/mm3 (4.2-5.4); White Blood Count 7.1 K/mm3 (4.0-10.5)
[2019-01-17 06:01] LABS: Anion Gap 10.7 mmol/L (6.8-13.8); BUN/Creatinine Ratio 10.2 (9.0-21.6); Calcium * 8.5 mg/dL (7.9-10.9); Carbon Dioxide 28.3 mmol/L (24-32.6); Estimated Creat Clear 39.4
[2019-01-17] MEDS: INSULIN REGULAR, HUMAN 100 UNITS/ML VIAL SC SCH ×4 (07:41→20:57)
[2019-01-17] MEDS: DULoxetine HCL 30 MG CAPSULE.SA PO SCH (08:04)
[2019-01-17] MEDS: DOCUSATE SODIUM 100 MG CAPSULE PO SCH ×2 (08:04→20:56)
[2019-01-17] MEDS: metFORMIN HCL 500 MG TABLET PO SCH (08:04)
[2019-01-17] MEDS: ASPIRIN 325 MG TABLET.DR PO SCH (08:04)
[2019-01-17] MEDS: LEVOTHYROXINE SODIUM 50 MCG TABLET PO SCH (08:04)
[2019-01-17] MEDS: Cyanocobalamin (Vitamin B-12) 100 MCG PO SCH (08:04)
[2019-01-17] MEDS: TORSEMIDE 20 MG TABLET PO SCH (08:04)
[2019-01-17] MEDS: CHOLECALCIFEROL 5,000 UNIT TABLET PO SCH (08:05)
[2019-01-17] MEDS: LISINOPRIL 10 MG TABLET PO SCH (08:05)
[2019-01-17] MEDS: GABAPENTIN 300 MG CAPSULE PO SCH ×3 (08:05→16:20)
[2019-01-17] MEDS: POTASSIUM CHLORIDE 10 MEQ TABLET.SA PO SCH (08:05)
[2019-01-17] MEDS: FAMOTIDINE 20 MG TABLET PO SCH ×2 (08:07→20:57)
--- NOTE | 2019-01-17 11:16 | PN ---
Subjective Subjective Narrative: I have left lower extremity pain, but it is controlled. Objective Objective Narrative: 68-year-old female status post close reduction and fixation of a left tib-fib fracture was evaluated at bedside was found to be afebrile and in no acute distress. Patient is doing well with her inpatient PT and OT. Postop hemoglobin has remained stable over the past day or 2, will continue watching it. Patient is being anticoagulated with aspirin as ordered by Ortho. There are no new concerns with her in hospital. Discharge planning is underway. - Review of Systems Generalized/Overall Review: Reports: No Symptoms Reported EENTM: Reports: No Symptoms Reported Respiratory: Reports: No Symptoms Reported Cardiac: Reports: No Symptoms Reported Abdominal: Reports: No Symptoms Reported Genitourinary Symptoms: Reports: No Symptoms Reported Musculoskeletal Complaints: Reports: Joint Pain Neurological: Reports: No Symptoms Reported Skin: Reports: No Symptoms Reported Endocrine: Reports: No Symptoms Reported - Vitals Vitals: Last Vital Signs Temp 36.7 C 01/17/19 10:59 Pulse 94 01/17/19 10:59 Resp 18 01/17/19 10:59 BP 127/64 01/17/19 10:59 Pulse Ox 96 01/17/19 10:59 - Abnormal Lab Findings Abnormal Lab Findings: Abnormal Lab Results 01/17/19 01/17/19 Range/Units 05:35 05:35 RBC 2.91 L (4.2-5.4) M/mm3 Hgb 8.4 L (12.5-16.0) gm/dL Hct 25.9 L (37.0-47.0) % RDW 15.0 H (11.5-14.0) % Est GFR (Non-Af Amer) 54 L (60-130) mL/min Random Glucose 123 H (70-110) mg/dL - Exam Constitutional: Present: Alert, Oriented x3, Cooperative, Well developed, Well nourished, No distress, Elderly ENT Exam: Present: normal ENT inspection, hearing grossly normal, pharynx normal, TMs normal Neck: Present: non-tender, full range of motion, supple, normal inspection, trac hea midline Breasts: Present: Exam deferred Respiratory: Present: chest non-tender, lungs clear, normal breath sounds, no respiratory distress, no accessory muscle use Cardiovascular/Chest: Present: normal peripheral pulses, regular rate, rhythm, no chest tenderness, no edema, no gallop, no JVD, no murmur, no rub Abdomen: Present: Normal bowel sounds, soft, nontender, nondistended, no rebound tenderness, no hepatospenomegaly, no masses /Rectal: Present: Exam deferred Extremity: Present: no pedal edema, normal capillary refill, calf tenderness, lower extremity edema, leg pain Skin Exam: Present: normal color, warm/dry, no cyanosis Lymphatic: Present: no adenopathy Neurologic: Present: blow mold technician II-XII nml as tested, normal cerebellar test, no motor/sensory deficits, alert, normal mood/affect, oriented x 3 Appearance: Present: appropriate appearance, appropriate insight, neat, no memory impairment Eye contact: Present: cooperative, good eye contact, normal speech Thoughts: Present: normal thought pattern, no apparent hallucination Cauti Physician Documentation - Urinary Catheter Management Urethral (Sands) Urethral Indwelling: No Date of Insertion: 01/15/19 Time of Insertion: 11:45 Date of Removal: 01/16/19 Time of Removal: 09:30 Assessment/Plan Plan Narrative: No changes will be made to the patient's management. We will continue to monitor her until she is discharged. - Problems/Diagnosis (1) Fracture of tibia with fibula, left, closed Problem: Acute Qualifiers: Encounter type: initial encounter Qualified Code(s): S82.202A - Unspecified fracture of shaft of left tibia, initial encounter for closed fracture; S82.402A - Unspecified fracture of shaft of left fibula, initial encounter for closed fracture (2) HTN (hypertension) Problem: Resolved Qualifiers: Hypertension type: essential hypertension Qualified Code(s): I10 - Essential (primary) hypertension (3) Diabetes 1.5, managed as type 2 Problem: Chronic (4) Pulmonary hypertension Problem: Chronic (5) Postoperative anemia Problem: Acute (6) Postoperative anemia due to acute blood loss Problem: Acute (7) Status post closed reduction with internal fixation Problem: Acute
--- NOTE | 2019-01-17 13:22 | PN ---
Subjective - Date and Time Seen Date: 01/17/19 Time: 08:00 Subjective Narrative: Patient reports no acute events. Patient notes her pain is well controlled at this time. Patient notes she is worked with physical therapy, she has not done significant amount of ambulation at this time, notes that she has a walker and wheelchair at home. Patient wishes to go home. Patient notes her pain is worse with movement better with rest. Patient does note she is had decrease in muscle spasms since preoperatively. Objective - Vitals Vitals: Last Vital Signs Temp 36.7 C 01/17/19 10:59 Pulse 94 01/17/19 10:59 Resp 18 01/17/19 10:59 BP 127/64 01/17/19 10:59 Pulse Ox 96 01/17/19 10:59 - Abnormal Lab Findings Abnormal Lab Findings: Abnormal Lab Results 01/17/19 01/17/19 Range/Units 05:35 05:35 RBC 2.91 L (4.2-5.4) M/mm3 Hgb 8.4 L (12.5-16.0) gm/dL Hct 25.9 L (37.0-47.0) % RDW 15.0 H (11.5-14.0) % Est GFR (Non-Af Amer) 54 L (60-130) mL/min Random Glucose 123 H (70-110) mg/dL - Exam Constitutional: Present: Alert, Cooperative, No distress Respiratory: Present: no respiratory distress Extremity: Present: other - LLE--> postoperative splint in place, sensation intact to light touch, distal capillary refill brisk, 5/5 toe flexion and extension, diffuse tenderness about left lower leg Eye contact: Present: cooperative Cauti Physician Documentation - Urinary Catheter Management Urethral (Sands) Urethral Indwelling: No Date of Insertion: 01/15/19 Time of Insertion: 11:45 Date of Removal: 01/16/19 Time of Removal: 09:30 Assessment/Plan Plan Narrative: 68-year-old female postop day 2 status post closed reduction and nailing of left tibia fracture -Nonweightbearing left lower extremity, ambulatory devices needed -PT/OT progress as tolerated -P.o. diet as tolerated -P.o. pain medication PRN -DVT prophylaxis, SCDs in bed, HEAVEN hose knee-high,325mg aspirin daily -Chronic medical conditions per medicine team -Disposition: Patient wishes to proceed home with home health, note that she has not proven to be able to perform all transfers. Discussed with physical therapy the need for independent transfers before being discharged home. If patient cannot perform these activities independently, will recommend a stay in a jail facility until they can be performed. Patient will continue to work with physical therapy throughout today and will reevaluate tomorrow to determine further treatment. Patient notes she lives at home with her granddaughter who would be there to help, however does not appear the granddaughter can be there for full-time care. - Problems/Diagnosis (1) Fracture of tibia with fibula, left, closed Problem: Acute Qualifiers: Encounter type: initial encounter Qualified Code(s): S82.202A - Unspecified fracture of shaft of left tibia, initial encounter for closed fracture; S82.402A - Unspecified fracture of shaft of left fibula, initial encounter for closed fracture
[2019-01-17] MEDS ORDERED: NORMAL SALINE 500 ML IV ONE ×2 (16:02→16:33)
[2019-01-17] MEDS: traZODone HCL 50 MG TABLET PO SCH (20:56)
[2019-01-17] MEDS: QUEtiapine FUMARATE 25 MG TABLET PO SCH (20:57)
[2019-01-17] MEDS: SENNOSIDES/DOCUSATE SODIUM 1 TAB TABLET PO SCH (20:57)
[2019-01-18] MEDS: ACETAMINOPHEN 500 MG TABLET PO PRN ×2 (05:16→16:59)
[2019-01-18] MEDS: DILTIAZEM HCL 30 MG TABLET PO SCH ×3 (05:16→21:45)
[2019-01-18] MEDS: INSULIN REGULAR, HUMAN 100 UNITS/ML VIAL SC SCH ×2 (07:32→12:01)
[2019-01-18] MEDS: LEVOTHYROXINE SODIUM 50 MCG TABLET PO SCH (07:33)
[2019-01-18] MEDS: TORSEMIDE 20 MG TABLET PO SCH (09:18)
[2019-01-18] MEDS: ASPIRIN 325 MG TABLET.DR PO SCH (09:18)
[2019-01-18] MEDS: ONDANSETRON HCL/PF 2 MG/ML VIAL IV PRN (09:18)
[2019-01-18] MEDS: DOCUSATE SODIUM 100 MG CAPSULE PO SCH ×2 (09:18→21:45)
[2019-01-18] MEDS: FAMOTIDINE 20 MG TABLET PO SCH ×2 (09:19→21:46)
[2019-01-18] MEDS: GABAPENTIN 300 MG CAPSULE PO SCH ×3 (09:19→16:59)
[2019-01-18] MEDS: CHOLECALCIFEROL 5,000 UNIT TABLET PO SCH (09:19)
[2019-01-18] MEDS: POTASSIUM CHLORIDE 10 MEQ TABLET.SA PO SCH (09:19)
[2019-01-18] MEDS: metFORMIN HCL 500 MG TABLET PO SCH (09:19)
[2019-01-18] MEDS: DULoxetine HCL 30 MG CAPSULE.SA PO SCH (09:19)
[2019-01-18] MEDS: Cyanocobalamin (Vitamin B-12) 100 MCG PO SCH (09:19)
[2019-01-18] MEDS: LISINOPRIL 10 MG TABLET PO SCH (09:23)
--- NOTE | 2019-01-18 09:29 | PN ---
Subjective - Date and Time Seen Date: 01/18/19 Time: 09:24 Subjective Narrative: I have mild nausea, left leg pain is controlled. Objective Objective Narrative: 68-year-old female status post close reduction and fixation of a left tib-fib fracture day # 3, was evaluated at bedside was found to be afebrile and in no acute distress. Patient continues to receive inpatient PT and OT to optimize her transfers and ambulation. The Ortho team recommends the patient be discharged to a rehab facility in order to ensure her safety and proper transfers. Patient is finally in agreement with this plan and says that she has informed her family. air conditioning mechanic are working on her discharge to the facility. In the meantime patient is clinically stable and reports that there is adequate control of her leg pain. Postop hemoglobin remained stable, we will continue to monitor her progress. - Review of Systems Generalized/Overall Review: Reports: No Symptoms Reported EENTM: Reports: No Symptoms Reported Respiratory: Reports: No Symptoms Reported Cardiac: Reports: No Symptoms Reported Abdominal: Reports: No Symptoms Reported Genitourinary Symptoms: Reports: No Symptoms Reported Musculoskeletal Complaints: Reports: Joint Pain Neurological: Reports: No Symptoms Reported Skin: Reports: No Symptoms Reported Endocrine: Reports: No Symptoms Reported - Vitals Vitals: Last Vital Signs Temp 37.1 C 01/18/19 06:57 Pulse 78 01/18/19 09:23 Resp 12 01/18/19 06:57 BP 111/46 01/18/19 09:23 Pulse Ox 91 L 01/18/19 06:57 - Exam Constitutional: Present: Alert, Oriented x3, Cooperative, Well developed, Well nourished, No distress ENT Exam: Present: normal ENT inspection, hearing grossly normal, pharynx normal, TMs normal Neck: Present: non-tender, full range of motion, supple, normal inspection, trachea midline Breasts: Present: Exam deferred Respiratory: Present: chest non-tender, lungs clear, normal breath sounds, no respiratory distress, no accessory muscle use Cardiovascular/Chest: Present: normal peripheral pulses, regular rate, rhythm, no chest tenderness, no edema, no gallop, no JVD, no murmur, no rub Abdomen: Present: Normal bowel sounds, soft, nontender, nondistended, no rebound tenderness, no hepatospenomegaly, no masses /Rectal: Present: Exam deferred Extremity: Present: normal capillary refill, pelvis stable, leg pain, other - Left lower extremity wrapped in clean and dry dressings, pulses are intact. Skin Exam: Present: normal color, warm/dry, no cyanosis Lymphatic: Present: no adenopathy Neurologic: Present: card processing clerk II-XII nml as tested, normal cerebellar test, no motor/sensory deficits, alert, normal mood/affect, oriented x 3 Appearance: Present: appropriate appearance, appropriate insight, neat, no memory impairment Eye contact: Present: cooperative, good eye contact, normal speech Thoughts: Present: normal thought pattern, no apparent hallucination Cauti Physician Documentation - Urinary Catheter Management Urethral (Sands) Urethral Indwelling: No Date of Insertion: 01/15/19 Time of Insertion: 11:45 Date of Removal: 01/16/19 Time of Removal: 09:30 Assessment/Plan - Problems/Diagnosis (1) Fracture of tibia with fibula, left, closed Problem: Acute Qualifiers: Encounter type: initial encounter Qualified Code(s): S82.202A - Unspecified fracture of shaft of left tibia, initial encounter for closed fracture; S82.402A - Unspecified fracture of shaft of left fibula, initial encounter for closed fracture (2) HTN (hypertension) Problem: Resolved Qualifiers: Hypertension type: essential hypertension Qualified Code(s): I10 - Essential (primary) hypertension (3) Diabetes 1.5, managed as type 2 Problem: Chronic (4) Pulmonary hypertension Problem: Chronic (5) Postoperative anemia Problem: Acute (6) Postoperative anemia due to acute blood loss Problem: Acute (7) Status post closed reduction with internal fixation Problem: Acute (8) At high risk for falls Problem: Acute
[2019-01-18] MEDS: HYDROcodone/ACETAMINOPHEN 1 EACH TABLET PO PRN (10:56)
--- NOTE | 2019-01-18 14:58 | PN ---
Subjective - Date and Time Seen Date: 01/18/19 Time: 07:50 Subjective Narrative: Patient reports no acute events. She notes her pain is well controlled. She notes she has been able to ambulate with assistance after the hallway and back. Patient notes she has no other acute complaints currently. Notes her pain is worse with weightbearing better with rest. Objective - Vitals Vitals: Last Vital Signs Temp 36.4 C 01/18/19 10:22 Pulse 79 01/18/19 11:59 Resp 16 01/18/19 10:22 BP 113/46 01/18/19 11:59 Pulse Ox 94 01/18/19 10:22 - Exam Constitutional: Present: Alert, Cooperative, No distress Respiratory: Present: no respiratory distress Extremity: Present: other - LLE--> sensation intact light touch, distal capillary refill brisk, 5/5 toe flexion extension, diffuse tenderness to left lower leg, postoperative splint in place Cauti Physician Documentation - Urinary Catheter Management Urethral (Sands) Urethral Indwelling: No Date of Insertion: 01/15/19 Time of Insertion: 11:45 Date of Removal: 01/16/19 Time of Removal: 09:30 Assessment/Plan Plan Narrative: 68-year-old female postop day 3 status post closed reduction and nailing of left tibia fracture -Nonweightbearing left lower extremity, ambulatory devices needed -PT/OT progress as tolerated -P.o. diet as tolerated -P.o. pain medication PRN -DVT prophylaxis, SCDs in bed, HEAVEN hose knee-high,325mg aspirin daily -Chronic medical conditions per medicine team -Disposition: After lengthy discussion with patient, she notes that she would feel more comfortable going to a group home facility, recommendation for transition to group home facility for continued monitoring and physical th erapy/OT. Discussion with case management patient will be transferred to SNF on 01/19/2019. - Problems/Diagnosis (1) Fracture of tibia with fibula, left, closed Problem: Acute Qualifiers: Encounter type: initial encounter Qualified Code(s): S82.202A - Unspecified fracture of shaft of left tibia, initial encounter for closed fracture; S82.402A - Unspecified fracture of shaft of left fibula, initial encounter for closed fracture
[2019-01-18] MEDS: QUEtiapine FUMARATE 25 MG TABLET PO SCH (21:43)
[2019-01-18] MEDS: SENNOSIDES/DOCUSATE SODIUM 1 TAB TABLET PO SCH (21:45)
[2019-01-18] MEDS: traZODone HCL 50 MG TABLET PO SCH (21:46)
[2019-01-19] MEDS: DILTIAZEM HCL 30 MG TABLET PO SCH ×2 (05:38→13:29)
[2019-01-19] MEDS: LEVOTHYROXINE SODIUM 50 MCG TABLET PO SCH (07:15)
--- NOTE | 2019-01-19 07:57 | PN ---
Progess Note - Interim Date: 01/19/19 Time: 07:54 Narrative: 01/19/19 07:54 Patient was seen resting comfortably in chair today. Patient notes her pain is well controlled with p.o. pain medication. Patient has been able to ambulate throughout the hallway with a walker with PT. Discussed with patient discharge to a halfway facility today. Exam reveals left lower extremity postop splint intact, distal capillary refill brisk, sensation intact light touch, 5/5 toe flexion and extension. Recommendations as follows: 68-year-old female postop day 4 status post closed reduction and nailing of left tibia fracture -Nonweightbearing left lower extremity, ambulatory devices needed -PT/OT progress as tolerated -P.o. diet as tolerated -P.o. pain medication PRN, hydrocodone acetaminophen 5/325 mg 1-2 tabs every 4-6 hours as needed for pain -DVT prophylaxis, SCDs in bed, HEAVEN hose knee-high,325mg aspirin daily -Follow-up with orthopedic outpatient clinic at 2 weeks postop -Chronic medical conditions per medicine team -Disposition: Discharge to halfway facility
--- NOTE | 2019-01-19 08:59 | DS ---
(1) Fracture of tibia with fibula, left, closed Problem: Acute Qualifiers: Encounter type: initial encounter Qualified Code(s): S82.202A - Unspecified fracture of shaft of left tibia, initial encounter for closed fracture; S82.402A - Unspecified fracture of shaft of left fibula, initial encounter for closed fracture (2) HTN (hypertension) Problem: Resolved Qualifiers: Hypertension type: essential hypertension Qualified Code(s): I10 - Essential (primary) hypertension (3) Diabetes 1.5, managed as type 2 Problem: Chronic (4) Pulmonary hypertension Problem: Chronic (5) Postoperative anemia Problem: Acute (6) Postoperative anemia due to acute blood loss Problem: Acute (7) Status post closed reduction with internal fixation Problem: Acute (8) At high risk for falls Problem: Acute Description of Stay: 68-year-old female admitted for a left tib-fib fracture after a fall that occurred at home was evaluated at bedside and was found to be afebrile and in no acute distress. During her hospitalization patient underwent a successful external reduction with internal fixation by the orthopedic surgeon. Patient tolerated the procedure well there were no adverse events reported. She also received inpatient PT and OT per the orthopedic surgeon's recommendations. This morning patient reports adequate control of her pain and says that she is ready for discharge. Discharge has been confirmed to [facility] in [place] where she will continue with PT and OT and outpatient follow-up with Ortho. Patient is being discharged with instructions to continue her routine medications and she will be provided with a prescription for analgesics to manage her pain. Procedures Performed: see notes below List Procedures: Surgical external reduction and internal fixation of left tib-fib fracture. Results and Findings: Lab Pending Results 01/15/19 01:06: WBC 10.8 H, RBC 3.91 L, Hgb 11.2 L, Hct 34.9 L, MCV 89.3, MCH 28.6, MCHC 32.1, RDW 14.9 H, Plt Count 211, MPV 10.3, Immature Gran % (Auto) 0.40, Immature Gran # (Auto) 0.04 H, Neutrophils % 81.3 H, Lymphocytes % 11.2 L, Monocytes % 6.6, Eosinophils % 0.3, Basophils % 0.2, Nucleated RBC % 0.0, Neutrophils # 8.8 H, Lymphocytes # 1.21 L, Monocytes # 0.7, Eosinophils # 0.0, Absolute Basophils 0.0 01/15/19 01:06: Sodium 139, Plasma Sodium 140, Potassium 3.5, Chloride 106, Carbon Dioxide 20.1 L, Anion Gap 16.4 H, BUN 20, Creatinine 1.53 H, Est GFR (Non-Af Amer) 36 L D, BUN/Creatinine Ratio 13.1, Random Glucose 149 H, Calcium 9.1, Calcium Adj for Albumin 8.9, Total Bilirubin 0.2, AST 30, ALT 12 L, Alkaline Phosphatase 96, Total Protein 6.9, Albumin 3.8 01/16/19 06:00: Sodium 141, Plasma Sodium 141, Potassium 3.7, Chloride 107 H, Carbon Dioxide 29.1, Anion Gap 8.6, BUN 11, Creatinine 1.25, Est GFR (Non-Af Amer) 45 L D, BUN/Creatinine Ratio 8.8 L, Random Glucose 115 H, Calcium 7.9, Calcium Adj for Albumin 8.5, Total Bilirubin 0.4, AST 25, ALT 10 L, Alkaline Phosphatase 82, Total Protein 5.7 L, Albumin 2.9 L 01/16/19 06:20: WBC 5.6 D, RBC 2.97 L, Hgb 8.6 L, Hct 26.9 L, MCV 90.6, MCH 29.0, MCHC 32.0, RDW 15.1 H, Plt Count 152, MPV 10.8, Immature Gran % (Auto) 0.20, Immature Gran # (Auto) 0.01, Neutrophils % 59.2, Lymphocytes % 26.8, Monocytes % 13.1 H, Eosinophils % 0.5, Basophils % 0.2, Nucleated RBC % 0.0, Neutrophils # 3.3, Lymphocytes # 1.49 L, Monocytes # 0.7, Eosinophils # 0.0, Absolute Basophils 0.0 01/17/19 05:35: WBC 7.1 D, RBC 2.91 L, Hgb 8.4 L, Hct 25.9 L, MCV 89.0, MCH 28.9, MCHC 32.4, RDW 15.0 H, Plt Count 157, MPV 10.6 01/17/19 05:35: Sodium 138, Plasma Sodium 138, Potassium 4.0, Chloride 103, Carbon Dioxide 28.3, Anion Gap 10.7, BUN 11, Creatinine 1.08, Est GFR (Non-Af Amer) 54 L, BUN/Creatinine Ratio 10.2, Random Glucose 123 H, Calcium 8.5 Discharge Location: [facility] Disposition: SNF Condition: Good Face to Face Encounter completed per [facility] Guidelines: No Level of Care: SNF Discharge Activity: Non-Weight bearing Discharge Diet: Consistent carbs Intermediate Therapy: Physical Therapy, Occupation Therapy Additional Patient Instructions (free text): [facility] Prescriptions (Any new or edited meds): Aspirin [Aspirin Enteric Coated] 325 mg PO DAILY 30 Days #30 tablet. HYDROcodone/ACETAMINOPHEN [[place] 5-325] 1 ea PO Q4H PRN 10 Days #30 tab PRN Reason: Moderate Pain (Pain Scale 4-6) Sennosides/Docusate Sodium [Senokot-S] 2 tab PO HS 10 Days #30 tablet Complete Home Medications List: Complete Home Medication List: Duloxetine HCl [Cymbalta] 30 mg PO DAILY 09/30/15 LORazepam [Ativan] 1 mg PO QID PRN 09/30/15 Levothyroxine Sodium [Tirosint] 50 mcg PO DAILY 09/30/15 Lisinopril [Zestril] 10 mg PO DAILY 09/30/15 metFORMIN HCL [Glucophage] 500 mg PO DAILY 09/30/15 Albuterol Sulfate [Albuterol Sulfate Hfa] 2 inh INHALATION Q4H PRN 01/15/19 Cholecalciferol (Vitamin D3) [Vitamin D3] 5,000 unit PO DAILY 01/15/19 Cyanocobalamin (Vitamin B-12) [Vitamin B12] 100 mcg PO DAILY 01/15/19 Diltiazem HCl 30 mg PO TID 01/15/19 Gabapentin 300 mg PO TID 01/15/19 Omeprazole [Prilosec] 20 mg PO DAILY 01/15/19 Potassium Chloride 10 meq PO DAILY 01/15/19 QUEtiapine FUMARATE [Seroquel] 75 mg PO HS 01/15/19 Torsemide [Demadex] 20 mg PO DAILY 01/15/19 traZODone HCL [Desyrel] 50 mg PO HS 01/15/19 Aspirin [Aspirin Enteric Coated] 325 mg PO DAILY 30 Days #30 tablet. 01/19/19 HYDROcodone/ACETAMINOPHEN [[place] 5-325] 1 ea PO Q4H PRN 10 Days #30 tab 01/19/19 Sennosides/Docusate Sodium [Senokot-S] 2 tab PO HS 10 Days #30 tablet 01/19/19
[2019-01-19] MEDS: ACETAMINOPHEN 500 MG TABLET PO PRN (09:50)
[2019-01-19] MEDS ORDERED: ONDANSETRON HCL 4 MG TABLET PO ONE (10:37)
[2019-01-19] MEDS: GABAPENTIN 300 MG CAPSULE PO SCH (10:55)
[2019-01-19] MEDS: FAMOTIDINE 20 MG TABLET PO SCH (10:55)
[2019-01-19] MEDS: metFORMIN HCL 500 MG TABLET PO SCH (10:55)
[2019-01-19] MEDS: CHOLECALCIFEROL 5,000 UNIT TABLET PO SCH (10:55)
[2019-01-19] MEDS: POTASSIUM CHLORIDE 10 MEQ TABLET.SA PO SCH (10:55)
[2019-01-19] MEDS: TORSEMIDE 20 MG TABLET PO SCH (10:56)
[2019-01-19] MEDS: DOCUSATE SODIUM 100 MG CAPSULE PO SCH (10:56)
[2019-01-19] MEDS: DULoxetine HCL 30 MG CAPSULE.SA PO SCH (10:57)
[2019-01-19] MEDS: ASPIRIN 325 MG TABLET.DR PO SCH (10:57)
[2019-01-19] MEDS: Cyanocobalamin (Vitamin B-12) 100 MCG PO SCH (10:57)
[2019-01-19 14:14] VITALS: BP 126/46
== END 2019-01-19 14:16 | DRG 493 ==
LOC: ER 23:38 → MS 01-15 00:42
PROVIDERS: ADMIT Family Medicine; ATTEND Family Medicine
DX: I10 Essential (primary) hypertension; W01.0XXA Fall on same level from slipping, tripping and stumbling without subsequent striking against object, initial encounter; Z91.81 History of falling; S82.252A Displaced comminuted fracture of shaft of left tibia, initial encounter for closed fracture; Z79.84 Long term (current) use of oral hypoglycemic drugs; D62 Acute posthemorrhagic anemia; S82.432A Displaced oblique fracture of shaft of left fibula, initial encounter for closed fracture; E03.9 Hypothyroidism, unspecified; I27.20 Pulmonary hypertension, unspecified; E13.9 Other specified diabetes mellitus without complications
CPT/HCPCS: 27752; 36415; 71010; 71045; 73590; 76000; 80048; 80053; 85025; 85027; 93005; 96374; 96375; 97110; 97116; 97161; 97165; 97530; 97535; 99285; J2405